=== PATIENT | male | born 1950 | race Caucasian/White ===

== ENCOUNTER 2019-08-20 22:39 | Emergency (ER) | payer MEDICARE, OTHER, SELFPAY ==
--- NOTE | ~2019-08-20 | XR_ITS ---
CORRECTED REPORT Charge and procedure correction. 12/16/2019 deyanira EXAMINATION: XR chest 1V DATE: 08/20/2019 22:54 INDICATION: Cardiac arrest. Intubation. TECHNIQUE: A single frontal view of the chest was obtained. COMPARISON: Chest 2 views 07/18/2016 FINDINGS: There are airspace opacities in the perihilar regions and at the lung bases. No pleural effusion or pneumothorax. The heart size is normal. The endotracheal tube tip is 2.2 cm above the elva. There is a right internal jugular port with tip at superior cavoatrial junction. There are suture anchors in right humeral head. IMPRESSION: 1. Airspace opacities in the perihilar regions and at the lung bases, consistent with pulmonary edema versus pneumonia. Reviewed, dictated and finalized at location A. MTDD IMPRESSION: 1. Airspace opacities in the perihilar regions and at the lung bases, consisten t with pulmonary edema versus pneumonia.
--- NOTE | ~2019-08-20 | CT_ITS ---
EXAMINATION: CT brain wo con DATE: 08/20/2019 23:38 INDICATION: Cardiac arrest. TECHNIQUE: Computed tomography (CT) of the head was performed without intravenous contrast. The mA wa s adjusted according to patient size. Iterative reconstruction technique was employed. The dose-lengt h product was 605.33 mGy-cm. COMPARISON: None FINDINGS: Motion artifact is noted. There are scattered areas of low attenuation in the cerebral whit e matter. There is no intracranial hemorrhage, acute infarction, or abnormal intracranial mass lesion . The ventricles are normal in size. There is fluid and mucosal thickening in the paranasal sinuses. There are likely changes of ocular lens replacement surgeries. The mastoid air cells are normal. IMPRESSION: 1. Mild nonspecific cerebral white matter disease, which likely represents chronic small vessel ische ho disease. Reviewed, dictated and finalized at location A. IMPRESSION: 1. Mild nonspecific cerebral white matter disease, which likely represents information consultant yanci small vessel ischemic disease.
--- NOTE | 2019-08-20 22:35 | PC.NURSE ---
OG insertion attempted x 3 unsuccessfully, NG insertion attempted x 3 unsuccessfully.
[2019-08-20 22:40] VITALS: PULSE 108; O2SAT 95
--- NOTE | 2019-08-20 22:44 | ECG_ITS ---
Measurements Intervals Walsh Rate: 110 P: -8 FL: 112 QRS: 15 QRSD: 91 T: 31 QT: 337 QTc: 457 Interpretive Statements SINUS TACHYCARDIA WITH SHORT FL INTERVAL LOW QRS VOLTAGE IN LIMB LEADS BORDERLINE ST-T WAVE ABNORMALITY- INF/LAT LEADS BASELINE WANDER- V6 ABNORMAL ECG Electronically Signed On 08-21-2019 6:47:28 CDT by Miguel Guadarrama D.O.
[2019-08-20 22:52] VITALS: BP 145/75; PULSE 120; RESP 18; TEMP 36.1; O2SAT 100
[2019-08-20 22:57] LABS: Alveolar/Arterial O2 Gradient 118.5 mmHg; Base Excess ABG -17.8 mEq/l (+/-2.0); Fractional Inspired Oxygen 40 %; HCO3 ABG 13.8 mEq/l (22.0-26.0); Methemoglobin ABG 0.5 %THb (0-1.5); Oxygen Content ABG 10.8 %vol (16.0-22.0); Oxygen Saturation ABG 89.6 % (95.0-100.0); PO2 ABG 90.1 mmHg (80.0-100.0); PO2 FiO2 Ratio Arterial Blood 2.25 %; Reduced Hemoglobin 10.5 %THb (0-5.0); Total Hemoglobin 8.5 g/dL (12.0-18.0)
[2019-08-20 22:59] LABS: Device VENTILATOR; PCO2 ABG 66.6 mmHg (35.0-45.0); Site Drawn RIGHT BRACHIAL; pH ABG 6.935 (7.350-7.450)
[2019-08-20 23:00] LABS: Arterial Blood Gas PEEP 5 cmH2O; Arterial Blood Gas Tidal Volume 380 ml; Arterial Blood Gas Vent Mode CMV; Arterial Blood Gas Ventilator rate 18 /MIN
--- NOTE | 2019-08-20 23:01 | PC.NURSE ---
THIS RN INTO TO SPEAK WITH PT , DE MCPHERSON, AND DAUGHTER- BOBBY EVANS. THEY REPORT THIS EVENING THE PATIENT WAS GURGLING AND HAVING DIFFICULTY BREATHING. THEY REPORT HE BECAME UNRESPONSIVE AND THE PT DAUGHTER STARTED CPR. THE PATIENTS STATES THE PATIENT WAS RECENTLY DISCHARGED FROM [facility] THIS PAST MONDAY. SHE STATED HE HE HAD 3 LITERS OF FLUIDS REMOVED FROM HIM. HE HAS HAD VERY LITTLE URINE OUTPUT AND A RICKETTS CATH WAS PLACED TODAY WITH 200 ML INITIAL OUTPUT. SINCE HE HAS HAD LITTLE OUTPUT. THEY STATE HE HAD A PRODUCTIVE COUGH TODAY, NO FEVER. I ASKED THE IF THE PATIENTS HEART STOPPED AGAIN, DOES SHE WISH CPR TO BE STARTED. SHE AND HER DAUGHTER BOTH STATED THEY DID NOT WISH THIS AND FELT THE PATIENT WOULD NOT WANT CPR. THEY REPORT HE DID NOT HAVE A DNR BUT WAS GOING TO. HE HAS LIVER CANCER WITH RECENT ABSCESSES ON THE LIVER WHICH THE CHEMO HAD BEEN STOPPED. HE HAS A PAST MED HX- COPD, RECENT PNEUMONIA, PANCREATIC CA W/WHIPPLE IN 2017, DM- TAKEN OFF OF MEDS FOR THIS., LIVER CA DX IN 2018. DR. DIANE IS PMD, DR. SHIRLEY AT [facility]. NAME- DE MCPHERSON DAUGHTER- BOBBY EVANS.
[2019-08-20 23:09] VITALS: BP 91/58; PULSE 110; RESP 22; TEMP 36.7; O2SAT 97
--- NOTE | 2019-08-20 23:13 | PC.NURSE ---
Family at bedside with pt- and daughter
[2019-08-20 23:14] LABS: Basophils Absolute Auto 0.1 K/mm3 (0.0-0.1); Basophils Percent Auto 0.3 % (0.2-1.2); Eosinophils Absolute Auto 0.2 K/mm3 (0-0.3); Eosinophils Percent Auto 0.9 % (0-4.4); Hemoglobin 7.6 g/dL (14.0-18.0); Immature Granulocyte Absolute 0.89 K/mm3 (0.00-0.031); Lymphocytes Absolute Auto 2.49 K/mm3 (0.9-3.2); Lymphocytes Percent Auto 11.2 % (18.3-44.2); Mean Corpuscular HGB Conc 30.4 g/dl (32-36); Mean Corpuscular Hemoglobin 31.1 pg (26-34); Mean Corpuscular Volume 102.5 fl (80-100); Mean Platelet Volume 11.2 fl (7.4-10.4); Monocytes Absolute Auto 2.4 K/mm3 (0.1-0.6); Monocytes Percent Auto 10.6 % (2.6-8.5); Neutrophils Absolute Auto 16.2 K/mm3 (1.3-6.7); Nucleated Red Blood Cells Perc 0.1 % (0.0-0.2); Platelet Count Result 109 k/mm3 (150-375); Red Blood Count 2.44 M/mm3 (4.6-6.20); Red Cell Distribution Width 17.6 % (11.5-14.5); White Blood Count 22.2 K/mm3 (4.5-10.0)
[2019-08-20 23:15] LABS: Glucose Point of Care 167 (65-105)
[2019-08-20 23:18] VITALS: PULSE 120
--- NOTE | 2019-08-20 23:22 | PC.NURSE ---
2311- PT AND DAUGHTER TAKEN TO THE BEDSIDE.
[2019-08-20 23:24] LABS: Add Urine Microscopic? YES; Appearance Urine Cloudy (Clear); Bacteria Urine 1+ /hpf; Bilirubin Urine 1+ (Negative); Blood Urine 3+ (Negative); Budding Yeast Urine Present /hpf; Color Urine Amber (Yellow); Glucose Urine UA Negative (Negative); Hyaline Casts Urine 50+ /lpf; Ketones Urine Trace mg/dL (Negative); Leukocyte Esterase Ur 2+ LEU/UL (Negative); Mucus Urine Rare /lpf; Nitrate Urine Negative (Negative); Protein Urine 2+ mg/dL (Negative); RBC Urine >75 /hpf (0-2); Specific Grav Ur 1.025 (1.001-1.035); WBC Clumps Urine Present /HPF; WBC Urine >75 /hpf
[2019-08-20 23:31] LABS: Prothrombin Time 53.6 Seconds (11.1-14.7)
[2019-08-20 23:41] LABS: INR 6.1
[2019-08-20 23:45] LABS: NT Pro B Type Natriuretic Pept 4410 PG/ML (5-100); Troponin I < 0.012 ng/mL (0.000-0.034)
[2019-08-20 23:49] LABS: Lactic Acid Reflex 9.2 mmol/L (0.7-2.1)
--- NOTE | 2019-08-20 23:50 | PCRCNOTE ---
PT TRANSPORTED FROM ED TO CT AND BACK VIA BVM. NO ADVERSE REACTION NOTED
[2019-08-20 23:51] LABS: Alanine Aminotransferase 28 U/L (4-50); Albumin Level 2.8 g/dL (3.5-5.1); Alkaline Phosphatase 202 U/L (38-126); Aspartate Amino Transferase 73 U/L (17-59); Bilirubin,Total 7.1 mg/dL (0.2-1.3); Blood Urea Nitrogen 21 mg/dL (9-20); CRP 17.6 mg/dL (<1.0); Calcium 8.2 mg/dL (8.4-10.2); Carbon Dioxide 16 mmol/L (22-30); Chloride 101 mmol/L (98-107); Estimated Glomerular Filt Rate 26; Glucose 177 mg/dL (75-110); Potassium 4.2 mmol/L (3.4-5.0); Sodium 133 mmol/L (137-145)
--- NOTE | 2019-08-20 23:56 | PC.NURSE ---
RN report given to HOSSEIN Hu.
[2019-08-21] VITALS (10 sets, daily range): BP systolic 71–78; BP diastolic 49–55; PULSE 97–103; RESP 26; TEMP 36.1; O2SAT 88–98
[2019-08-21] MEDS: LACTATED RINGERS 1,000 ML 999 ML IV CONT (00:01)
--- NOTE | 2019-08-21 00:08 | PC.NURSE ---
ERP notified of patient's BP of 77/47.
--- NOTE | 2019-08-21 00:12 | PC.NURSE ---
VORB per ERP give 1mg IVP ativan.
--- NOTE | 2019-08-21 01:03 | PC.NURSE ---
Called Brielle in respiratory per ERP request to extubate patient.
--- NOTE | 2019-08-21 01:10 | PC.NURSE ---
Brielle, RT in room at this time.
--- NOTE | 2019-08-21 01:17 | PC.NURSE ---
AT [id number] Brielle,RT extubates patient upon family request and VORB per .
--- NOTE | 2019-08-21 01:20 | PM.IMHP ---
H&P: HPI History of Present Illness Chief complaint: cardiac arrest Narrative: Date and time of patient contact: 08/21/2019 at 1:20 a.m. Alessandro Shafer is a 69 year old male [facility] Social History Social History Gender identity (if verbalized by the patient): Male Sexual Orientation (if Verbalized by the Patient): Straight or Heterosexual Meds Home Medications and Allergies Home Medications Medication Instructions Recorded Confirmed Type acetaminophen 325 mg PO ONCE PRN 08/21/19 History amoxicillin-pot clavulanate tablet 08/21/19 History aspirin [Adult Low Dose Aspirin] 08/21/19 History citalopram mg 08/21/19 History famotidine 08/21/19 History furosemide 08/21/19 History gabapentin 08/21/19 History metformin mg 08/21/19 History midodrine mg 08/21/19 History midodrine mg 08/21/19 History potassium chloride meq PO 08/21/19 History prochlorperazine maleate 08/21/19 History sennosides [Senna Laxative] mg 08/21/19 History simvastatin mg 08/21/19 History tamsulosin mg PO 08/21/19 History tramadol mg 08/21/19 History Allergies Allergy/AdvReac Type Severity Reaction Status Date / Time codeine Allergy Unknown Other Verified 08/20/19 23:59 Vital Signs Vital Signs - 24 hr 08/20/19 22:40 08/20/19 22:52 08/20/19 23:09 Temperature 97.0 F L 98.0 F Pulse Rate 108 H 120 H 110 H Respiratory Rate 18 22 H Blood Pressure 145/75 H 91/58 L Pulse Oximetry 95 100 97 08/20/19 23:18 08/21/19 00:05 08/21/19 00:15 Temperature Pulse Rate 120 H 103 H 101 H Respiratory Rate 26 H Blood Pressure 76/49 L Pulse Oximetry 92 08/21/19 00:16 08/21/19 00:30 08/21/19 00:31 Temperature Pulse Rate 101 H 99 99 Respiratory Rate Blood Pressure 78/52 L Pulse Oximetry 91 08/21/19 00:45 08/21/19 00:46 08/21/19 01:00 Temperature Pulse Rate 99 98 97 Respiratory Rate Blood Pressure 77/50 L 75/53 L Pulse Oximetry 88 L 08/21/19 01:01 08/21/19 01:17 Temperature 97.0 F L Pulse Rate 97 99 Respiratory Rate 26 H Blood Pressure 71/55 L Pulse Oximetry 98 H&P: Results Labs Labs: Short CBC 08/20/19 Range/Units 23:01 WBC 22.2 H (4.5-10.0) K/mm3 Hgb 7.6 L (14.0-18.0) g/dL Hct 25.0 L (42.0-52.0) % Plt Count 109 L (150-375) k/mm3 BMP 08/20/19 23:01 Sodium 133 L Potassium 4.2 Chloride 101 Carbon Dioxide 16 L BUN 21 H Creatinine 2.50 H Glucose 177 H Calcium 8.2 L Cardiac Enzymes 08/20/19 Range/Units 23:01 Troponin I < 0.012 (0.000-0.034) ng/mL Liver Function 08/20/19 Range/Units 23:01 Total Bilirubin 7.1 H (0.2-1.3) mg/dL AST 73 H (17-59) U/L ALT 28 (4-50) U/L Alkaline Phosphatase 202 H (38-126) U/L Albumin 2.8 L (3.5-5.1) g/dL Urine 08/20/19 Range/Units 23:03 Urine Color Ivone (Yellow) Urine Appearance Cloudy H (Clear) Urine pH 5.0 (5.0-9.0) Ur Specific Bruni 1.025 (1.001-1.035) Urine Protein 2+ H (Negative) mg/dL Urine Glucose (UA) Negative (Negative) mg/dL
--- NOTE | 2019-08-21 01:23 | PC.NURSE ---
Patient's family at bedside. Patient resting comfortably on stretcher with family at bedside. Patient's states I just want to left him go peacefully.
--- NOTE | 2019-08-21 01:25 | PC.NURSE ---
Patient's heart rate decreased to 0, ERP in room as well as this nurse in room with family at bedside.
--- NOTE | 2019-08-21 01:31 | PC.NURSE ---
ERP calls TOD at 0128 on 08/21/2019. Family still at bedside.
--- NOTE | 2019-08-21 01:58 | ED.CPR ---
HPI - CPR General Chief Complaint: Cardiac Arrest/CPR Stated Complaint: cardiac arrest Time Seen by Provider: 08/20/19 22:44 Source: family and EMS Mode of arrival: EMS Limitations: clinical condition History of Present Illness HPI narrative: This patient is a 69 year old male with history liver cancer who presents for evaluation of cardiac arrest. EMS states they were called for difficulty breathing and just before their arrival patient became unresponsive. His family started CPR prior to EMS arrival. Patient also started vomiting during CPR. EMS reports patient was in asystole on arrival. They intubated patient in route and he was given 3 doses of epinephrine. On arrival to ER , patient was found to have a pulse. EMS states family reported that patient had just decided he did not want to be resuscitated today but they had no official paperwork. Patient's and daughter are at bedside. They report patient was discharged from [place] on after having fluid drained off his abdomen. Patient was taken off of chemotherapy due to increased weakness and infection. His family states patient since being discharged had signed up for hospice. He was having low oxygen saturations and some shortness of breath so hospice brought oxygen to his house 1 hour before his collapse. Patient told family that he was tired and he did not want to be resuscitated yesterday. Related Data Home Medications Medication Instructions Recorded Confirmed acetaminophen 325 mg PO ONCE PRN 08/21/19 amoxicillin-pot clavulanate tablet 08/21/19 aspirin [Adult Low Dose Aspirin] 08/21/19 citalopram mg 08/21/19 famotidine 08/21/19 furosemide 08/21/19 gabapentin 08/21/19 metformin mg 08/21/19 midodrine mg 08/21/19 midodrine mg 08/21/19 potassium chloride meq PO 08/21/19 prochlorperazine maleate 08/21/19 sennosides [Senna Laxative] mg 08/21/19 simvastatin mg 08/21/19 tamsulosin mg PO 08/21/19 tramadol mg 08/21/19 Allergies Allergy/AdvReac Type Severity Reaction Status Date / Time codeine Allergy Unknown Other Verified 08/20/19 23:59 Review of Systems Review of Systems: ROS unobtainable: Yes unobtainable due to endotracheal tube and unobtainable due to medical condition PMF Past Medical History Medical History (Updated 08/21/19 @ 08:32 by Princess Cisneros MD) Diabetes mellitus Liver cancer Surgical History Surgical History (Updated 08/21/19 @ 02:00 by Princess Cisneros MD) Hx of appendectomy Previous back surgery Social History Social History Gender identity (if verbalized by the patient): Male Sexual Orientation (if Verbalized by the Patient): Straight or Heterosexual Exam Const: General: ill appearing acutely HENMT: Head: normocephalic and atraumatic Mouth: Yes other (blood in his mouth) Eyes: Sclera: scleral abnormality bilateral other (scleral icterus) Pupils: Fixed pupils (midposition) bilaterally Resp: Effort & Inspection: no retractions Auscultation: clear to auscultation bilaterally Other: intubated Cardio: Rate: tachycardic Rhythm: regular rhythm GI: Inspection: distended and scar GI Palp: Yes Firmness to palpation present (GI) Auscultation: Hypoactive bowel sounds present Skin: General skin exam: jaundice Extrem: General: edema Course Reevaluation(s) Reevaluation #1: I spoke with family about patient's critical condition. They state that patient is terminal and they want patient to be comfortable. They report patient would not want to be kept alive on a ventilator. They also states patient did not want to be resuscitated and he wanted to be comfortable. They are in agreement with making patient comfort care. Date: 08/21/19 Time: 00:30 Reevaluation #2: Family is at bedside. Patient was extubated as patient request for comfort care. PAtient had no spontaneous respiration and he was pulseless. Time of 128 am. Date: 08/21/19 Time: 02:21 Vital Signs Vit
[2019-08-21 02:10] LABS: Reflex Lactic Acid Yes or No Add Lactic
--- NOTE | 2019-08-21 02:11 | PC.NURSE ---
0134 Gudelia, apartment rental clerk notified of patient's . Gudelia releases patient's body. 0143 Edith, from [facility] notified of patient's , stated will call back if patient is candidate for donation, other gallegos take patient to morgue or home. 0200 This nurse contacted [facility] upon patient's requests. Spoke with Fide, stated she will call someone for patient. 0210 [facility] calls back stating they will pick patient up in the morning, to take him to the morgue.
--- NOTE | 2019-08-21 04:07 | PC.NURSE ---
0403 PER LATRELL AT [facility]- THEY WILL RELEASE/DEFER DONATION, REFERENCE # [id number].
== END 2019-08-21 02:22 | disposition expired ==
PROVIDERS: Emergency Provider General Practice; PCP Family Medicine Adolescent Medicine
DX: J96.90 Respiratory failure, unspecified, unspecified whether with hypoxia or hypercapnia (principal); I46.9 Cardiac arrest, cause unspecified; E11.9 Type 2 diabetes mellitus without complications; Z79.84 Long term (current) use of oral hypoglycemic drugs; C22.9 Malignant neoplasm of liver, not specified as primary or secondary; R06.00 Dyspnea, unspecified
CPT/HCPCS: 36415; 36600; 70450; 71045; 80053; 81001; 82375; 82805; 83050; 83605; 83735; 83880; 84484; 85025; 85610; 85730; 86140; 87040; 87077; 87086; 87186; 93005; 96365; 96375; 99284; J2060; J2543; J3010; J7120